=== PATIENT | male | born 1950 | race Caucasian/White ===

== ENCOUNTER 2016-11-14 02:25 | Emergency (ER) | payer SELFPAY ==
[~2016-11-14] VITALS: Ht 172.7 cm; Wt 79.5 kg
[~2016-11-14 02:25] MED LIST: LEVO500 PO; MULT1TAB70 PO
[2016-11-14] MEDS ORDERED: LABETALOL HCL 5 MG/ML 20 ML VIAL IVP ONE (03:45)
[2016-11-14] MEDS ORDERED: OXYMETAZOLINE HCL 0.05% 15 ML NASAL SPRAY NASAL ONE (03:45)
[2016-11-14] MEDS ORDERED: LORazepam 2 MG/ML VIAL IVP ONE ×3 (03:45→05:45)
[2016-11-14 04:15] LABS: BASOPHILS % (AUTO) 2.8 % (0.0-2.0); EOSINOPHILS % (AUTO) 1.4 % (1.0-6.0); HEMATOCRIT 40.2 % (41-53); HEMOGLOBIN 13.6 g/dL (13.5-17.5); LYMPHOCYTES # (AUTO) 0.9 K/uL (1.0-4.8); LYMPHOCYTES % (AUTO) 19.6 % (22.0-44.0); MEAN CORPUSCULAR HEMOGLOBIN 32.4 pg (26.0-34.0); MEAN CORPUSCULAR HGB CONC 33.8 G/dL (31.0-37.0); MEAN CORPUSCULAR VOLUME 96 fL (80-100); MONOCYTES # (AUTO) 0.7 K/uL (0.1-1.0); MONOCYTES % (AUTO) 15.8 % (2.0-9.0); NEUTROPHILS # (AUTO) 2.8 K/uL (1.8-7.7); NEUTROPHILS % (AUTO) 60.4 % (40.0-70.0); PLATELET COUNT (AUTO) 144 K/uL (150-450); RED BLOOD CELL COUNT(AUTO) 4.19 MIL/uL (4.50-5.90); WHITE BLOOD COUNT (AUTO) 4.6 K/uL (4.5-11.0)
[2016-11-14 04:25] LABS: INR 1.1 (0.9-1.1); PROTHROMBIN TIME 11.4 SEC (9.4-11.6)
[2016-11-14 04:29] LABS: ANION GAP 10 mmol/L (8-16); CALCIUM, TOTAL 8.7 mg/dL (8.8-10.5); CARBON DIOXIDE 26 mmol/L (22-29); CHLORIDE 106 mmol/L (98-107); CREATININE 0.82 mg/dL (0.60-1.30); GLOMERULAR FILTR. RATE CALC > 60 mL/min (>60); POTASSIUM 3.6 mmol/L (3.5-5.1); SODIUM SERUM 142 mmol/L (136-145); UREA NITROGEN, BLOOD 6 mg/dL (7-18)
[2016-11-14 04:34] LABS: ALANINE AMINOTRANSFERASE 25 U/L (12-78); ALBUMIN 3.6 g/dL (3.4-5.0); ASPARTATE AMINOTRANSFERASE 34 U/L (15-37); BILIRUBIN,TOTAL 0.8 mg/dL (0.1-1.0); TOTAL PROTEIN, SERUM 8.1 g/dL (6.4-8.2)
[2016-11-14] MEDS ORDERED: AmLODIPine BESYLATE 5 MG TABLET PO ONE (05:15)
[2016-11-14 06:12] VITALS: BP 141/92
[2016-11-14] MEDS ORDERED: AMLO-511 PO (13:49)
[2016-11-14] MEDS ORDERED: LIB25 PO (13:49)
== END 2016-11-14 06:22 | disposition home or self-care (01) ==
LOC: EMS 02:26
DX: R04.0 Epistaxis (principal); F10.20 Alcohol dependence, uncomplicated; Y90.0 Blood alcohol level of less than 20 mg/100 ml
CPT/HCPCS: 36415; 80053; 85025; 85610; 85730; 96374; 96375; 96376; 99284; G0480; J2060; J3490

== ENCOUNTER 2016-11-14 13:39 | Emergency (ER) | payer MEDICARE ==
[~2016-11-14] VITALS: Ht 172.7 cm; Wt 76.4 kg
[2016-11-14] MEDS ORDERED: AMLO-511 PO (13:49)
[2016-11-14] MEDS ORDERED: LIB25 PO (13:49)
[2016-11-14] MEDS ORDERED: ChlordiazePOXIDE HCL 25 MG CAPSULE PO ONE (15:15)
[2016-11-14] MEDS ORDERED: PHENYLEPHRINE HCL 1% 15 ML NASAL SPRAY NASAL ONE (15:15)
[2016-11-14 17:56] VITALS: BP 143/97
== END 2016-11-14 18:28 | disposition home or self-care (01) ==
LOC: EMS 13:40
DX: R04.0 Epistaxis (principal); F10.20 Alcohol dependence, uncomplicated
CPT/HCPCS: 30901; 99284

== ENCOUNTER 2016-11-16 13:14 | Emergency (ER) | payer MEDICARE ==
[~2016-11-16] VITALS: Ht 172.7 cm; Wt 76.4 kg
[~2016-11-16 13:14] MED LIST changes: +AMLO-511 PO; -LEVO500 PO; +LIB25 PO; -MULT1TAB70 PO
[2016-11-16 13:35] VITALS: BP 114/80
== END 2016-11-16 14:42 | disposition home or self-care (01) ==
LOC: EMS 13:18
DX: Z48.00 Encounter for change or removal of nonsurgical wound dressing (principal); R04.0 Epistaxis; K74.60 Unspecified cirrhosis of liver; F10.20 Alcohol dependence, uncomplicated
CPT/HCPCS: 99281

== ENCOUNTER 2021-06-14 07:16 | Inpatient (IN) | payer MEDICARE, MEDICAID ==
[~2021-06-14] VITALS: Ht 172.7 cm; Wt 82.8 kg
[~2021-06-14 07:16] MED LIST changes: +AMLO-257 PO; -AMLO-511 PO
[2021-06-14 07:48] LABS: HEMATOCRIT 26.4 % (41-53); HEMOGLOBIN 7.9 g/dL (13.5-17.5); MEAN CORPUSCULAR HGB CONC 30.1 G/dL (31.0-37.0); MEAN CORPUSCULAR VOLUME 60 fL (80-100); PLATELET COUNT (AUTO) 276 K/uL (150-450); RED BLOOD CELL COUNT(AUTO) 4.42 MIL/uL (4.50-5.90); RED CELL DISTRIBUTION WIDTH 21.5 % (11.5-14.5)
[2021-06-14 07:55] LABS: COVID AG,FIA SOURCE NASOPHARYNGEAL
[2021-06-14 07:55] LABS: BAND NEUTROPHILS % (MANUAL) 0 % (0-5)
[2021-06-14 07:56] LABS: ANION GAP 12 mmol/L (8-16); CALCIUM, TOTAL 8.9 mg/dL (8.8-10.5); CARBON DIOXIDE 23 mmol/L (22-29); CHLORIDE 102 mmol/L (98-107); CREATININE 0.86 mg/dL (0.60-1.30); GLOMERULAR FILTR. RATE CALC > 60 mL/min (>60); GLUCOSE,RANDOM 114 mg/dL (70-110); POTASSIUM 3.8 mmol/L (3.5-5.1); SODIUM SERUM 137 mmol/L (136-145); UREA NITROGEN, BLOOD 7 mg/dL (7-18)
[2021-06-14 08:02] LABS: APPEARANCE,URINE CLEAR (CLEAR); BILIRUBIN,URINE NEGATIVE (NEGATIVE); GLUCOSE, URINE (UA) NEGATIVE (NEGATIVE); KETONES,URINE NEGATIVE (NEGATIVE); LEUKOCYTE ESTERASE ,URINE NEGATIVE (NEGATIVE); NITRATE,URINE NEGATIVE (NEGATIVE); OCCULT BLOOD,URINE NEGATIVE (NEGATIVE); PROTEIN,URINE NEGATIVE (NEGATIVE)
[2021-06-14 08:02] LABS: INR 1.1 (0.9-1.1); PROTHROMBIN TIME 11.7 SEC (9.4-11.6)
[2021-06-14 08:04] LABS: ALANINE AMINOTRANSFERASE 20 U/L (12-78); ALBUMIN 3.4 g/dL (3.4-5.0); ALKALINE PHOSPHATASE 82 U/L (46-116); ASPARTATE AMINOTRANSFERASE 31 U/L (15-37); BILIRUBIN,TOTAL 0.4 mg/dL (0.1-1.0); CREATINE KINASE, TOTAL ONLY 77 U/L (39-308); PHOSPHORUS 3.2 mg/dL (2.5-4.9); TOTAL PROTEIN, SERUM 8.7 g/dL (6.4-8.2)
[2021-06-14 08:07] LABS: AMPHET/METH SCREEN,URINE NEGATIVE (NEGATIVE); BARBITURATE SCREEN, URINE NEGATIVE (NEGATIVE); BENZODIAZEPINES SCREEN,URINE NEGATIVE (NEGATIVE); CANNABINOID SCREEN,URINE NEGATIVE (NEGATIVE); COCAINE SCREEN,URINE NEGATIVE (NEGATIVE); METHADONE SCREEN, URINE NEGATIVE (NEGATIVE); OPIATE SCREEN,URINE NEGATIVE (NEGATIVE); PHENCYCLIDINE SCREEN,URINE NEGATIVE (NEGATIVE)
[2021-06-14 08:14] LABS: B-TYPE NATRIURETIC PEPTIDE 18 pg/mL (0-100)
[2021-06-14] MEDS ORDERED: MAGNESIUM SULFATE 2 GM, MVI, ADULT NO.1 WITH VIT K 10 ML, THIAMINE 100 MG, FOLIC ACID 1... IV ONE ×5 (08:15)
[2021-06-14 08:33] LABS: BASOPHILS % (MANUAL) 1 % (0-2); EOSINOPHILS % (MANUAL) 1 % (1-6); LYMPHOCYTES % (MANUAL) 31 % (22-44); MONOCYTES % (MANUAL) 8 % (2-9); SEGMENTED NEUTROPHILS % 59 % (40-70)
[2021-06-14] MEDS ORDERED: ONDANSETRON HCL 4 MG/2 ML VIAL IVP PRN (09:15)
[2021-06-14] MEDS ORDERED: MAGNESIUM SULFATE 4 GM/WATER 100 ML IV PRN (09:15)
[2021-06-14] MEDS ORDERED: MAGNESIUM SULFATE 2 GM/WATER 50 ML IV PRN (09:15)
[2021-06-14] MEDS ORDERED: ACETAMINOPHEN 325 MG TABLET PO PRN (09:15)
[2021-06-14] MEDS ORDERED: MAGNESIUM OXIDE 400 MG TABLET PO PRN (09:15)
[2021-06-14 13:35] VITALS: BP 167/105
[2021-06-14] MEDS: MULTIVITAMINS WITH MINERALS, THERAPEUTIC TABLET PO SCH (13:58)
[2021-06-14] MEDS ORDERED: PNEUMOCOCCAL VACCINE POLYVALENT 0.5 ML VIAL [PPSV23] IM. ONE (16:00)
[2021-06-14] MEDS ORDERED: INFLUENZA VIRUS VACCINE QVS 2021-22 (6MO+)/PF 60 MCG/0.5 ML SYRINGE IM. ONE (16:00)
[2021-06-14] MEDS: LORazepam 2 MG/ML VIAL IVP PRN ×2 (16:17→22:17)
[2021-06-14] MEDS: CARVEDILOL 3.125 MG TABLET PO SCH ×2 (16:17→20:58)
[2021-06-14] MEDS: HEPARIN SODIUM,PORCINE 5,000 UNITS/ML VIAL SQ SCH (16:17)
[2021-06-14 16:19] LABS: THYROID STIMULATING HORMONE 2.53 uIU/mL (0.36-3.74)
[2021-06-14 16:20] VITALS: BP 167/105
[2021-06-14 19:50] VITALS: BP 145/90
[2021-06-14] MEDS: DOCUSATE SODIUM 100 MG CAPSULE PO SCH (20:58)
[2021-06-14] MEDS: FERROUS SULFATE 325 MG EC TABLET PO SCH (20:58)
[2021-06-15 00:23] VITALS: BP 130/93
[2021-06-15 04:03] VITALS: BP 141/95
[2021-06-15 07:21] VITALS: BP 122/93
[2021-06-15] MEDS: MULTIVITAMINS WITH MINERALS, THERAPEUTIC TABLET PO SCH (08:08)
[2021-06-15] MEDS: FERROUS SULFATE 325 MG EC TABLET PO SCH (08:08)
[2021-06-15] MEDS: HEPARIN SODIUM,PORCINE 5,000 UNITS/ML VIAL SQ SCH ×2 (08:09)
[2021-06-15] MEDS: CARVEDILOL 3.125 MG TABLET PO SCH (08:09)
[2021-06-15] MEDS: DOCUSATE SODIUM 100 MG CAPSULE PO SCH (08:09)
[2021-06-15] MEDS ORDERED: PANTOPRAZOLE SODIUM 40 MG DR TABLET PO SCH (09:00)
[2021-06-15 11:48] VITALS: BP 134/87
[2021-06-15 14:53] VITALS: BP 139/94
== END 2021-06-15 16:45 | disposition home or self-care (01) | DRG 312 ==
LOC: EMS 07:36 → 5S 10:24
PROVIDERS: ADMIT Internal Medicine; ATTEND Internal Medicine
DX: R55 Syncope and collapse (principal); R29.6 Repeated falls; Y90.6 Blood alcohol level of 120-199 mg/100 ml; F10.10 Alcohol abuse, uncomplicated; K74.60 Unspecified cirrhosis of liver; D50.9 Iron deficiency anemia, unspecified; R53.81 Other malaise; Z20.822 Contact with and (suspected) exposure to COVID-19
CPT/HCPCS: 70450; 71045; 80053; 81003; 82550; 83735; 83880; 84100; 84443; 84484; 85025; 85610; 85730; 93005; 93306; 97162; 99285; G0480; J1644; J2060; J3411; J3475; J3490; J7030; 36415-L1; 36415-TC